=== PATIENT | female | born 1990 | race Caucasian/White ===

== ENCOUNTER 2016-12-13 09:01 | Emergency (ER) | payer MEDICAID ==
[~2016-12-13 09:01] MED LIST: BENZ1CAP8 PO; NORE1TAB60 PO; PROP20TA3 PO
[2016-12-13 09:03] VITALS: BP 141/88; PULSE 99; RESP 15; TEMP 98.8; O2SAT 98
[2016-12-13 09:47] LABS: AUTOMATED NEUTROPHIL # 12.1 TH/MM3 (1.8-7.7); BASOPHIL % 0.3 % (0.0-2.0); EOSINOPHIL # 0.1 TH/MM3 (0-0.4); EOSINOPHIL % 0.5 % (0.0-4.0); HEMATOCRIT 44.2 % (35.0-46.0); HEMO FLAGS DIFF FINAL; LYMPH % 10.3 % (9.0-44.0); LYMPHOCYTE # 1.5 TH/MM3 (1.0-4.8); MEAN CELL VOLUME 85.1 FL (80.0-100.0); MEAN CORPUSCULAR HEMOGLOBIN 28.7 PG (27.0-34.0); MEAN CORPUSCULAR HGB CONC 33.8 % (32.0-36.0); MONO % 4.7 % (0.0-8.0); NEUT % 84.2 % (16.0-70.0); PLATELET COUNT 389 TH/MM3 (150-450); RED BLOOD COUNT 5.19 MIL/MM3 (4.00-5.30); RED CELL DISTRIBUTION WIDTH 13.2 % (11.6-17.2); WHITE BLOOD COUNT 14.4 TH/MM3 (4.0-11.0)
[2016-12-13 09:50] LABS: BLOOD, URINE NEG (NEG); COMMENT (UR) CULT NOT INDICATED; CULTURE IF INDICATED CULT NOT INDICATED; GLUCOSE,URINE NEG (NEG); KETONE, URINE NEG (NEG); NITRITE,URINE NEG (NEG); URINE COLOR LIGHT-YELLOW (YELLW/STRAW)
--- NOTE | 2016-12-13 09:59 | PD ---
HPI Chief Complaint: GI Complaint Time Seen by Provider: 09:40 Travel History International Travel<30 days: No Contact w/Intl Traveler<30days: No Traveled to known affect area: No History of Present Illness HPI 26yo F presents to the ED with c/o right upper abdominal pain since 5am today. States it was associated with nausea and 2 episodes of NBNB vomiting. Pt also had nonbloody diarrhea. States she has had this pain before in the last 2 years and each episode usually lasts 4-6 hours. Denies any history of gallstones. [place] hot and cold at the same time but no documented fever. Denies any fever, chest pain, sob, dysuria, hematuria, vaginal bleeding or discharge. PFSH Past Medical History Inguinal Hernia: Yes (repaired during childhood) LMP: 11/06/16 : 1 Past Surgical History Gynecologic Surgery: Yes (cervical surg) Social History Alcohol Use: No Tobacco Use: No Substance Use: No Allergies-Medications (Allergen,Severity, Reaction): Coded Allergies: Bettina (Verified Allergy, Unknown, 09/01/16) Reported Meds & Prescriptions Reported Meds & Active Scripts Active Zofran Odt (Ondansetron Odt) 4 Mg Tab 4 Mg SL Q12HR PRN Tylenol (Acetaminophen) 325 Mg Tab 650 Mg PO Q6H PRN Reported Midol Teen (Acetaminophen-Pamabrom) 500-25 mg Tab 2 Tab PO Q6HR PRN Review of Systems Except as stated in HPI: all other systems reviewed are Neg Physical Exam Narrative GENERAL: 26yo F in mild distress. SKIN: Focused skin assessment warm/dry. HEAD: Atraumatic. Normocephalic. CARDIOVASCULAR: Regular rate and rhythm. No murmur appreciated. RESPIRATORY: No accessory muscle use. Clear to auscultation. Breath sounds equal bilaterally. GASTROINTESTINAL: Abdomen soft, +TTP RUQ. +Eden's sign. No RLQ ttp. No rebound tenderness or guarding. MUSCULOSKELETAL: No obvious deformities. No clubbing. No cyanosis. No edema. NEUROLOGICAL: Awake and alert. No obvious cranial nerve deficits. Motor grossly within normal limits. Normal speech. PSYCHIATRIC: Appropriate mood and affect; insight and judgment normal. Data Data Last Documented VS Vital Signs Date Time Temp Pulse Resp B/P Pulse Ox O2 Delivery O2 Flow Rate FiO2 12/13/16 14:00 71 14 125/65 98 Room Air 12/13/16 09:03 98.8 Orders Complete Blood Count With Diff (12/13/16 09:08) Comprehensive Metabolic Panel (12/13/16 09:08) Urinalysis - C+S If Indicated (12/13/16 09:08) Ed Urine Pregnancytest Poc (12/13/16 09:08) Iv Access Insert/Monitor (12/13/16 09:08) Lipase (12/13/16 09:08) Us Abdomen Gallbladder (12/13/16 ) Ondansetron Inj (Zofran Inj) (12/13/16 11:00) Morphine Inj (Morphine Inj) (12/13/16 11:00) Consult General Surgery (12/13/16 ) NPO (12/13/16 13:30) (Hub Use Only)Inp Phy Cons/Ref (12/13/16 ) Morphine Inj (Morphine Inj) (12/13/16 15:45) Labs Laboratory Tests Test 12/13/16 09:25 White Blood Count 14.4 TH/MM3 Red Blood Count 5.19 MIL/MM3 Hemoglobin 14.9 GM/DL Hematocrit 44.2 % Mean Corpuscular Volume 85.1 FL Mean Corpuscular Hemoglobin 28.7 PG Mean Corpuscular Hemoglobin 33.8 % Concent Red Cell Distribution Width 13.2 % Platelet Count 389 TH/MM3 Mean Platelet Volume 8.4 FL Neutrophils (%) (Auto) 84.2 % Lymphocytes (%) (Auto) 10.3 % Monocytes (%) (Auto) 4.7 % Eosinophils (%) (Auto) 0.5 % Basophils (%) (Auto) 0.3 % Neutrophils # (Auto) 12.1 TH/MM3 Lymphocytes # (Auto) 1.5 TH/MM3 Monocytes # (Auto) 0.7 TH/MM3 Eosinophils # (Auto) 0.1 TH/MM3 Basophils # (Auto) 0.0 TH/MM3 CBC Comment DIFF FINAL Differential Comment Urine Color LIGHT-YELLOW Urine Turbidity CLEAR Urine pH 8.0 Urine Specific [place] 1.005 Urine Protein NEG mg/dL Urine Glucose (UA) NEG mg/dL Urine Ketones NEG mg/dL Urine Occult Blood NEG Urine Nitrite NEG Urine Bilirubin NEG Urine Urobilinogen LESS THAN 2.0 MG/DL Urine Leukocyte Esterase NEG Microscopic Urinalysis Comment CULT NOT INDICATED Sodium Level 137 MEQ/L Potassium Level 4.7 MEQ/L Chloride Level 103 MEQ/L Carbon Dioxide Level 26.8 MEQ/L Anion Gap 7 MEQ/L Blood Urea Nitrogen 6 MG/DL Creatinine 0.73 MG/DL Estimat Glomerular Filtration 96 ML/MIN Rate Random Glucose 120 MG/DL Calcium Level 9.3 MG/DL Total Bilirubin 1.3 MG/DL Aspartate Amino Transf 133 U/L (AST/SGOT) Alanine Aminotransferase 71 U/L (ALT/SGPT) Alkaline Phosphatase 94 U/L Total Protein 7.8 GM/DL Albumin 4.0 GM/DL Lipase 121 U/L [facility] Medical Decision Making Medical Screen Exam Complete: Yes Emergency Medical Condition: Yes Differential Diagnosis Biliary colic vs. acute cholecystitis vs. viral gastroenteritis vs. choledocholithiasis Narrative Course 26yo F with RUQ pain that started at 5am today. Labs reviewed, leukocytosis at 14.4. Elevated total bilirubin at 1.3, Elevated AST/ALT at 133/71. Normal lipase. US gallbladder showed multiple gallstones in relative benign appearing gallbladder. I discussed case with surgeon Dr. Fischer and he came to evaluate the patient in the ED. Recommended that pt follow up with GI and get endoscopy and also an outpatient HIDA scan. Recommend pt to follow up with him. Pt reevaluated after morphine and zofran and pain and nausea has improved. Pt is well appearing and agrees to follow up as outpatient. Return precautions given. Diagnosis Primary Impression: Biliary colic Referrals: Tori Lazaro MD call for appointment RUQ pain with elevated bilirubin, LFTs, seen by Dr. Fischer in ED and recommends endoscopy. Patient Instructions: General Instructions Departure Forms: Tests/Procedures Additional Instructions: Please follow up with die cleaner for endoscopy. Please also obtain your HIDA scan as an outpatient at radiology. Please follow up with Dr. Smith after the studies are completed. Return to the ED if symptoms worsen. Med/Other Pt SpecificInfo: Prescription(s) given Scripts Ondansetron Odt (Zofran Odt)4 Mg Tab4 Mg SL Q12HR PRN (Nausea/Vomiting) #7 TAB Ref 0 Prov:Kaitlyn Fischer DO 12/13/16 Acetaminophen (Tylenol)325 Mg [id number] Mg PO Q6H PRN (PAIN SCALE 1 TO 4) #20 TAB Ref 0 Prov:Kaitlyn Fischer DO 12/13/16 Disposition: 01 DISCHARGE HOME Condition: Stable Kaitlyn Fischer DO Dec 13, 2016 09:59
[2016-12-13 10:03] LABS: ANION GAP 7 MEQ/L (5-15); AST (GOT) 133 U/L (15-37); BICARBONATE 26.8 MEQ/L (21.0-32.0); BLOOD UREA NITROGEN 6 MG/DL (7-18); CHLORIDE 103 MEQ/L (98-107); GLOMERULAR FILTRATION RATE 96 ML/MIN (>89); POTASSIUM 4.7 MEQ/L (3.5-5.1); SODIUM (NA) 137 MEQ/L (136-145)
[2016-12-13 10:04] LABS: ALT (GPT) 71 U/L (10-53)
[2016-12-13 10:06] LABS: ALKALINE PHOSPHATASE 94 U/L (45-117); TOTAL BILIRUBIN ADULT 1.3 MG/DL (0.2-1.0)
--- NOTE | 2016-12-13 10:43 | RADRPT ---
EXAM DATE/TIME: 12/13/2016 10:09 [facility] COMPARISON: No previous studies available for comparison. INDICATIONS : Right upper quadrant pain. MEDICAL HISTORY : Inguinal hernia. Substance abuse. SURGICAL HISTORY : Inguinal hernia repair. LEEP. ENCOUNTER: Initial ACUITY: 1 day PAIN SCORE: 9/10 LOCATION: Right upper quadrant MEASUREMENTS: LIVER: 15.6 cm length COMMON DUCT: 5 mm RIGHT KIDNEY: 11.3 x 5.6 x 4.6 cm FINDINGS: LIVER: Normal echotexture without focal lesion or ductal dilatation. COMMON DUCT: No intraluminal mass or stone visualized. GALLBLADDER: The multiple gallstones with tenderness over the gallbladder by history. There is no wall thickening or fluid present. PANCREAS: The visualized portions are within normal limits. RIGHT KIDNEY: No evidence of hydronephrosis, stone, or mass. CONCLUSION: Multiple gallstones in the relative benign appearing gallbladder. Jonathan Humphreys MD FACR on December 13, 2016 at 10:40 Board Certified Radiologist. This report was verified electronically.
[2016-12-13] MEDS ORDERED: ACET-815 PO (10:46)
[2016-12-13] MEDS ORDERED: MORPHINE SULFATE 4 MG/ML INJ IV PUSH ONE ×2 (11:00→15:45)
[2016-12-13] MEDS ORDERED: ONDANSETRON HCL 4 MG/2 ML VIAL IV PUSH ONE (11:00)
[2016-12-13 14:00] VITALS: BP 125/65; PULSE 71; RESP 14; O2SAT 98
[2016-12-13] MEDS ORDERED: TYLE325T PO (15:23)
[2016-12-13] MEDS ORDERED: ZOFR4TAB3 SL (15:23)
--- NOTE | 2016-12-13 16:20 | MB ---
cc: STACY SHARP MD DATE OF CONSULTATION: 12/13/[address] Sharp, Surgery. HISTORY OF PRESENT ILLNESS A 26-year-old female presents to the ER with right upper abdominal and epigastric pain since this morning. The patient had nausea and two episodes of vomiting. The patient also has diarrhea. The patient states that in the last 2 years she has off and on pain that lasts 4-6 hours but did not know if she had gallstones. She never had a workup of any sorts. In the last year she was referred to gastroenterology for upper endoscopy and never followed up with it and cancelled appointment. PAST MEDICAL HISTORY 1. Two vaginal deliveries. 2. Right inguinal hernia repair as a child. SOCIAL HISTORY The patient does not smoke, drink or use substances, although about 6 years ago she did have one bout of alcoholic intoxication for which she was admitted to the hospital here and since then the patient has been dry. She works in a jewelry store. ALLERGIES None. MEDICATION The patient is on Tylenol and also Midol Teen for headaches. PHYSICAL EXAMINATION GENERAL: Physical examination reveals a 26-year-old female in no acute distress. HEENT: Normocephalic. No trauma to the head. Pupils equally reactive. Extraocular muscles intact. Sclerae are nonicteric. NECK: Bilateral carotid pulses. No bruits. CHEST: Bilateral breath sounds. HEART: Regular rhythm. ABDOMEN: Soft. Active bowel sounds. Presently nontender. No rebound or guarding. No masses. It appears that the patient was tender earlier today but this has now disappeared. PELVIC: Pelvis is stable. EXTREMITIES: Extremities are within normal limits with good proximal distal pulses. NEUROLOGIC: The patient is fully intact. IMPRESSION AND RECOMMENDATIONS I reviewed laboratory notes, the procedures on this lady. The patient has multiple episodes of abdominal pain, sometimes lower, sometimes upper abdomen, was told that she may have endometriosis, never that she has gallstones. At this point she clearly has cholelithiasis. However, no distension of the gallbladder, no swelling or pericholecystic fluid. It might have been a biliary colic. At this point, however, there are other options in the face of the patient's symptoms, I believe it is appropriate that she has upper endoscopy or at least a HIDA scan and be seen by gastroenterology. Eventually the patient will need laparoscopic cholecystectomy but she needs a basic workup before that considering her symptoms and slightly elevated bilirubin and LFTs. The patient will be following up in my office. I have given her referral for a HIDA scan and to be seen by GI. Thank you much for the referral. Stacy RUDOLPH /3:38 PM /3:52 PM
== END 2016-12-13 16:08 | disposition home or self-care (01) ==
LOC: NEPD 09:01
DX: K80.70 Calculus of gallbladder and bile duct without cholecystitis without obstruction (principal)
CPT/HCPCS: 76705; 80053; 81001; 83690; 84703; 85025; 96374; 96375; 96376; 99285; J2270; J2405

== ENCOUNTER 2016-12-21 16:54 | Emergency (ER) | payer MEDICAID ==
[~2016-12-21] VITALS: Ht 160 cm; Wt 85.0 kg
[~2016-12-21 16:54] MED LIST changes: +ACET-815 PO; -BENZ1CAP8 PO; -NORE1TAB60 PO; -PROP20TA3 PO; +TYLE325T PO; +ZOFR4TAB3 SL
[2016-12-21 16:55] VITALS: BP 130/89; PULSE 68; RESP 15; TEMP 97.6; O2SAT 97
[2016-12-21] MEDS ORDERED: SODIUM CHLOR 0.9% 1000 ML INJ 1,000 ML IV SCH (17:51)
--- NOTE | 2016-12-21 17:51 | PD ---
HPI Chief Complaint: Abdominal Pain Time Seen by Provider: 17:51 Travel History International Travel<30 days: No Contact w/Intl Traveler<30days: No Traveled to known affect area: No History of Present Illness HPI 26 year old female presents to the ED for evaluation Right and left upper abdominal pain, history of gallstones, and occasional sensation of lightheadedness. Pt is concerned about her "gallbladder disease' and is unable to get her HIDA scan until the end of the month. Pt denies any nausea or vomiting. Pt is intermittent. Denies chance of . No urinary symptoms. No recent illness, fever, or chills. No other symptoms to report. PFSH Past Medical History Diabetes: Yes (gestational) Inguinal Hernia: Yes (repaired during childhood) : 2 Para: 2 Past Surgical History Abdominal Surgery: Yes (age 3) Gynecologic Surgery: Yes (cervical surg, LEEP) Social History Alcohol Use: Yes (occasional) Tobacco Use: No Substance Use: No Allergies-Medications (Allergen,Severity, Reaction): Coded Allergies: Bettina (Verified Allergy, Unknown, 12/21/16) Reported Meds & Prescriptions Reported Meds & Active Scripts Active No Active Prescriptions or Reported Medications Review of Systems Except as stated in HPI: all other systems reviewed are Neg Physical Exam Narrative GENERAL: Well-nourished female patient, ambulatory no acute distress SKIN: Focused skin assessment warm/dry. HEAD: Atraumatic. Normocephalic. EYES: Pupils equal and round. No scleral icterus. No injection or drainage. ENT: No nasal bleeding or discharge. Mucous membranes pink and moist. NECK: Trachea midline. No JVD. CARDIOVASCULAR: Regular rate and rhythm. No murmur appreciated. RESPIRATORY: No accessory muscle use. Clear to auscultation. Breath sounds equal bilaterally. GASTROINTESTINAL: Abdomen soft, non-tender, nondistended. Guarding. No rebound tenderness. Hepatic and splenic margins not palpable. MUSCULOSKELETAL: No obvious deformities. No clubbing. No cyanosis. No edema. NEUROLOGICAL: Awake and alert. No obvious cranial nerve deficits. Motor grossly within normal limits. Normal speech. PSYCHIATRIC: Appropriate mood and affect; insight and judgment normal. Data Data Last Documented VS Vital Signs Date Time Temp Pulse Resp B/P Pulse Ox O2 Delivery O2 Flow Rate FiO2 12/21/16 19:54 73 16 110/76 98 Room Air 12/21/16 16:55 97.6 Orders Complete Blood Count With Diff (12/21/16 17:51) Comprehensive Metabolic Panel (12/21/16 17:51) Lipase (12/21/16 17:51) Prothrombin Time / Inr (Pt) (12/21/16 17:51) Act Partial Throm Time (Ptt) (12/21/16 17:51) Urinalysis - C+S If Indicated (12/21/16 17:51) Iv Access Insert/Monitor (12/21/16 17:51) Ecg Monitoring (12/21/16 17:51) Oximetry (12/21/16 17:51) Sodium Chlor 0.9% 1000 Ml Inj (Ns 1000 M (12/21/16 17:51) Sodium Chloride 0.9% Flush (Ns Flush) (12/21/16 18:00) Ed Urine Pregnancytest Poc (12/21/16 17:51) Ketorolac Inj (Toradol Inj) (12/21/16 18:00) Ct Abd/Pel W Iv Contrast(Rout) (12/21/16 ) Iohexol 350 Inj (Omnipaque 350 Inj) (12/21/16 19:43) Labs Laboratory Tests Test 12/21/16 18:00 White Blood Count 8.9 TH/MM3 Red Blood Count 4.90 MIL/MM3 Hemoglobin 14.4 GM/DL Hematocrit 42.6 % Mean Corpuscular Volume 86.9 FL Mean Corpuscular Hemoglobin 29.3 PG Mean Corpuscular Hemoglobin 33.8 % Concent Red Cell Distribution Width 13.1 % Platelet Count 336 TH/MM3 Mean Platelet Volume 8.3 FL Neutrophils (%) (Auto) 56.9 % Lymphocytes (%) (Auto) 33.4 % Monocytes (%) (Auto) 7.0 % Eosinophils (%) (Auto) 2.0 % Basophils (%) (Auto) 0.7 % Neutrophils # (Auto) 5.1 TH/MM3 Lymphocytes # (Auto) 3.0 TH/MM3 Monocytes # (Auto) 0.6 TH/MM3 Eosinophils # (Auto) 0.2 TH/MM3 Basophils # (Auto) 0.1 TH/MM3 CBC Comment DIFF FINAL Differential Comment Prothrombin Time 10.3 SEC Prothromb Time International 0.9 RATIO Ratio Activated Partial 25.0 SEC Thromboplast Time Urine Color YELLOW Urine Turbidity CLEAR Urine pH 7.0 Urine Specific [place] 1.011 Urine Protein NEG mg/dL Urine Glucose (UA) NEG mg/dL Urine Ketones NEG mg/dL Urine Occult Blood NEG Urine Nitrite NEG Urine Bilirubin NEG Urine Urobilinogen LESS THAN 2.0 MG/DL Urine Leukocyte Esterase NEG Urine RBC LESS THAN 1 /hpf Urine WBC 1 /hpf Urine Squamous Epithelial <1 /hpf Cells Microscopic Urinalysis Comment CULT NOT INDICATED Sodium Level 137 MEQ/L Potassium Level 4.4 MEQ/L Chloride Level 105 MEQ/L Carbon Dioxide Level 26.3 MEQ/L Anion Gap 6 MEQ/L Blood Urea Nitrogen 10 MG/DL Creatinine 0.65 MG/DL Estimat Glomerular Filtration 110 ML/MIN Rate Random Glucose 99 MG/DL Calcium Level 8.7 MG/DL Total Bilirubin 0.5 MG/DL Aspartate Amino Transf 45 U/L (AST/SGOT) Alanine Aminotransferase 66 U/L (ALT/SGPT) Alkaline Phosphatase 93 U/L Total Protein 7.6 GM/DL Albumin 3.6 GM/DL Lipase 85 U/L [facility] Medical Decision Making Medical Screen Exam Complete: Yes Emergency Medical Condition: Yes Medical Record Reviewed: Yes Differential Diagnosis Biliary colic versus pancreatitis versus cholecystitis versus indigestion versus normal exam versus abdominal pain NOS versus anxiety Narrative Course 26-year-old female presents to emergency department for further evaluation of abdominal pain. This is upper quadrant right and left-sided area and however abdominal exam is completely benign. In review of patient's previous records, patient does have gallstones with no inflammatory changes. She reports following up outpatient but feels like things are not being done soon enough. She is concerned that this pain is here and that she has had intermittent episodes of lightheadedness. Denies any chance . Lab work is without acute concern. AST and ALT are very slightly elevated. I have discussed in depth with the patient follow-up continued evaluation of patient. She was very concerned that something as well as her abdomen. I offered CT abdomen to her which she wishes to proceed with. It is negative for acute abnormality. No etiology for her pain is identified. I reviewed these findings with the patient. She'll be discharged home to follow-up with primary care provider. She agrees to return immediately with any acute worsening symptoms. Diagnosis Primary Impression: Abdominal pain Qualified Code: R10.10 - Pain of upper abdomen Referrals: Primary Care Physician Patient Instructions: Abdominal Pain (ED), General Instructions Additional Instructions: Follow up with your primary care provider Seek gastroenterology evaluation Return to ED with acute worsening of symptoms Med/Other Pt SpecificInfo: No Change to Meds Scripts No Active Prescriptions or Reported Meds Disposition: 01 DISCHARGE HOME Condition: Stable Екатерина Ramírez Dec 21, 2016 17:51
[2016-12-21] MEDS ORDERED: KETOROLAC TROMETHAMINE 30 MG/ML (IVP) VIAL IV PUSH ONE (18:00)
[2016-12-21] MEDS ORDERED: SODIUM CHLORIDE 0.9% FLUSH 10 ML FLUSH IV FLUSH PRN (18:00)
[2016-12-21 18:31] LABS: AUTOMATED NEUTROPHIL # 5.1 TH/MM3 (1.8-7.7); BASOPHIL # 0.1 TH/MM3 (0-0.2); BASOPHIL % 0.7 % (0.0-2.0); BLOOD, URINE NEG (NEG); EOSINOPHIL # 0.2 TH/MM3 (0-0.4); GLUCOSE,URINE NEG (NEG); HEMATOCRIT 42.6 % (35.0-46.0); HEMO FLAGS DIFF FINAL; KETONE, URINE NEG (NEG); LYMPH % 33.4 % (9.0-44.0); MEAN CELL VOLUME 86.9 FL (80.0-100.0); MEAN CORPUSCULAR HEMOGLOBIN 29.3 PG (27.0-34.0); MEAN CORPUSCULAR HGB CONC 33.8 % (32.0-36.0); NEUT % 56.9 % (16.0-70.0); NITRITE,URINE NEG (NEG); PLATELET COUNT 336 TH/MM3 (150-450); RED CELL DISTRIBUTION WIDTH 13.1 % (11.6-17.2); SQUAMOUS EPITHELIAL CELL URINE <1 /hpf (0-5); URINE COLOR YELLOW (YELLW/STRAW); WHITE BLOOD COUNT 8.9 TH/MM3 (4.0-11.0)
[2016-12-21 18:35] LABS: COMMENT (UR) CULT NOT INDICATED; CULTURE IF INDICATED CULT NOT INDICATED
[2016-12-21 18:38] LABS: INTERNATIONAL NORMALIZED RATIO 0.9 RATIO; PROTHROMBIN TIME - PATIENT 10.3 SEC (9.8-11.6)
[2016-12-21 18:53] LABS: ALT (GPT) 66 U/L (10-53)
[2016-12-21 18:55] LABS: ALKALINE PHOSPHATASE 93 U/L (45-117); TOTAL BILIRUBIN ADULT 0.5 MG/DL (0.2-1.0)
[2016-12-21 18:58] LABS: ANION GAP 6 MEQ/L (5-15); AST (GOT) 45 U/L (15-37); BICARBONATE 26.3 MEQ/L (21.0-32.0); BLOOD UREA NITROGEN 10 MG/DL (7-18); CHLORIDE 105 MEQ/L (98-107); GLOMERULAR FILTRATION RATE 110 ML/MIN (>89); SODIUM (NA) 137 MEQ/L (136-145)
[2016-12-21 18:59] LABS: POTASSIUM 4.4 MEQ/L (3.5-5.1)
[2016-12-21] MEDS ORDERED: IOHEXOL 350 MG/ML 10 ML VIAL (for RAD DIAG) IV ONE (19:43)
[2016-12-21 19:54] VITALS: BP 110/76; PULSE 73; RESP 16; O2SAT 98
--- NOTE | 2016-12-21 20:04 | RADRPT ---
EXAM DATE/TIME: 12/21/2016 19:35 [facility] COMPARISON: No previous studies available for comparison. INDICATIONS : Right upper diffuse abdomen pain. IV CONTRAST: 74 cc Omnipaque 350 (iohexol) IV ORAL CONTRAST: No oral contrast ingested. RADIATION DOSE: 9.99 CTDIvol (mGy) MEDICAL HISTORY : Gallbladder stones. SURGICAL HISTORY : None. ENCOUNTER: Initial ACUITY: 1 day PAIN SCALE: 3/10 LOCATION: Right upper quadrant TECHNIQUE: Volumetric scanning of the abdomen and pelvis was performed. Using automated exposure control and ad justment of the mA and/or kV according to patient size, radiation dose was kept as low as reasonably achievable to obtain optimal diagnostic quality images. DICOM format image data is available electro nically for review and comparison. FINDINGS: LOWER LUNGS: The visualized lower lungs are clear. LIVER: Homogeneous density without lesion. There is no dilation of the biliary tree. No calcified gallston es. SPLEEN: Normal size without lesion. PANCREAS: Within normal limits. ADRENAL GLANDS: Within normal limits. KIDNEYS: Normal in size and shape. There is no mass, stone, or hydronephrosis.. VASCULAR: There is no aortic aneurysm. BOWEL/MESENTERY: The stomach, small bowel, and colon demonstrate no acute abnormality. There is no free intraperitone al air or fluid. RETROPERITONEUM: There is no lymphadenopathy. BLADDER: No wall thickening or mass. REPRODUCTIVE: Small adnexal cysts are noted. ABDOMINAL WALL: Within normal limits. INGUINAL: There is no lymphadenopathy or hernia. MUSCULOSKELETAL: Within normal limits for patient age. CONCLUSION: Negative for acute process. I do not see an etiology for the diffuse abdominal pain. Jonathan Humphreys MD FACR on December 21, 2016 at 20:00 Board Certified Radiologist. This report was verified electronically.
== END 2016-12-21 20:32 | disposition home or self-care (01) ==
LOC: NEPC 16:54
DX: R10.10 Upper abdominal pain, unspecified (principal); R42 Dizziness and giddiness; Z87.19 Personal history of other diseases of the digestive system
CPT/HCPCS: 74177; 80053; 81001; 83690; 84703; 85025; 85610; 85730; 96374; 99285; J1885; J7030; Q9967

== ENCOUNTER 2016-12-23 03:08 | Emergency (ER) | payer MEDICAID ==
[~2016-12-23] VITALS: Ht 165.1 cm; Wt 85.0 kg
[2016-12-23 03:10] VITALS: BP 139/84; PULSE 85; RESP 16; TEMP 98.7; O2SAT 98
--- NOTE | 2016-12-23 03:51 | PD ---
HPI Chief Complaint: Abdominal Pain Time Seen by Provider: 03:40 Travel History International Travel<30 days: No Contact w/Intl Traveler<30days: No Traveled to known affect area: No History of Present Illness HPI Patient is a 26-year-old female with history of gallstones who comes in because of an episode of abdominal pain tonight. She says the pain woke her up from sleep and felt like her past gallbladder pain. She says that since arriving at the hospital her pain is completely disappeared. She has no complaints at this time. She has not had any fever or chills. She says she had some nausea, but that has gone away. She has not had any vomiting. She is following with the surgeon and has a HIDA scan scheduled for January 01. She is advised to keep these appointments. [facility] Past Medical History Diabetes: Yes (gestational) Patient Takes Glucophage: No Diminished Hearing: No Inguinal Hernia: Yes (repaired during childhood) ?: Not LMP: 3 weeks ago : 2 Para: 2 Past Surgical History Abdominal Surgery: Yes (age 3) Gynecologic Surgery: Yes (cervical surg, LEEP) Social History Alcohol Use: Yes (occasional) Tobacco Use: No (quit 5 yrs ago) Substance Use: No Allergies-Medications (Allergen,Severity, Reaction): Coded Allergies: Bettina (Verified Allergy, Unknown, 12/21/16) Reported Meds & Prescriptions Reported Meds & Active Scripts Active No Active Prescriptions or Reported Medications Review of Systems General / Constitutional: No: Fever, Chills HENT: No: Headaches, Lightheadedness Cardiovascular: No: Chest Pain or Discomfort Respiratory: No: Shortness of Breath Gastrointestinal: Positive: Nausea, Abdominal Pain, No: Vomiting Genitourinary: No: Dysuria Musculoskeletal: No: Weakness Skin: No Rash, No Change in Pigmentation Neurologic: No: Weakness, Dizziness Physical Exam Narrative GENERAL: Awake and alert, in no acute distress. SKIN: Focused skin assessment warm/dry. HEAD: Atraumatic. Normocephalic. EYES: Pupils equal and round. No scleral icterus. ENT: Mucous membranes pink and moist. CARDIOVASCULAR: Regular rate and rhythm. No murmur appreciated. RESPIRATORY: No accessory muscle use. Clear to auscultation. Breath sounds equal bilaterally. GASTROINTESTINAL: Abdomen soft, nondistended. Very minimally tender to the right upper quadrant. No rebound or guarding. NEUROLOGICAL: Awake and alert. No obvious cranial nerve deficits. Motor grossly within normal limits. Normal speech. Data Data Last Documented VS Vital Signs Date Time Temp Pulse Resp B/P Pulse Ox O2 Delivery O2 Flow Rate FiO2 12/23/16 03:10 98.7 85 16 139/84 98 Room Air MDM Medical Decision Making Medical Screen Exam Complete: Yes Emergency Medical Condition: Yes Medical Record Reviewed: Yes Differential Diagnosis Cholecystitis versus cholelithiasis versus gastritis versus GERD Narrative Course Patient is a 26-year-old female who comes in after an episode of abdominal pain. Since arriving at the hospital, her pain has gone away. Her exam shows very minimal tenderness to the right upper quadrant. She says she is feeling better and she would like to go home. She declines any testing at this time. She declines any medication at this time. She has follow-up arranged, she is advised to keep these appointments. Advised to return to the ED as needed for any worsening symptoms. Diagnosis Primary Impression: Biliary colic Patient Instructions: Biliary Colic (ED), General Instructions Additional Instructions: Follow-up with your surgeon. Avoid fatty foods. Return to the ED as needed for any worsening symptoms. Scripts No Active Prescriptions or Reported Meds Disposition: 01 DISCHARGE HOME Condition: Stable Beverley Patel MD Dec 23, 2016 03:51
== END 2016-12-23 04:16 | disposition home or self-care (01) ==
LOC: NEPC 03:08
DX: K80.50 Calculus of bile duct without cholangitis or cholecystitis without obstruction (principal); Z87.891 Personal history of nicotine dependence; Z88.8 Allergy status to other drugs, medicaments and biological substances
CPT/HCPCS: 99281